=== PATIENT | female | born 1965 | race Caucasian/White ===

== ENCOUNTER 2016-08-23 13:33 | Emergency (ER) | payer MEDICAID | END 2016-08-23 18:03 | disposition home or self-care (01) | LOC: ER 13:33 | DX: M79.652 Pain in left thigh (principal); Z79.899 Other long term (current) drug therapy; I10 Essential (primary) hypertension; F32.9 Major depressive disorder, single episode, unspecified; E66.01 Morbid (severe) obesity due to excess calories; Z85.850 Personal history of malignant neoplasm of thyroid | CPT/HCPCS: 93971 ==

== ENCOUNTER 2016-08-25 14:17 | Emergency (ER) | payer MEDICAID ==
[2016-08-25] MEDS ORDERED: KETOROLAC 60 MG/2 ML VIAL IM ONE (15:37)
[2016-08-25] MEDS ORDERED: DILAUDID 1 MG/ML AMP ONE (15:38)
== END 2016-08-25 18:03 | disposition home or self-care (01) ==
LOC: ER 14:17
DX: S39.012A Strain of muscle, fascia and tendon of lower back, initial encounter (principal); M51.36 Other intervertebral disc degeneration, lumbar region; M54.42 Lumbago with sciatica, left side; Z79.899 Other long term (current) drug therapy; I10 Essential (primary) hypertension; F32.9 Major depressive disorder, single episode, unspecified; E66.01 Morbid (severe) obesity due to excess calories; Z85.850 Personal history of malignant neoplasm of thyroid
CPT/HCPCS: 72100; 96372